=== PATIENT | female | born 1960 | race Caucasian/White ===

== ENCOUNTER 2019-09-09 09:10 | Day surgery (SDC) | payer OTHER ==
--- NOTE | 2019-07-29 13:41 | HP ---
DATE OF ADMISSION: 08/12/2019 Patient to be admitted through the [facility] on . HISTORY: This is a 59-year-old woman admitted to the [facility] [place] for laparoscopic removal of her gallbladder as management of symptomatic cholelithiasis/chronic cholecystitis. According to the patient, she has been having intermittent bouts of right upper quadrant pain radiating to her right flank with some achiness at the level of her right back over the course of at least a month 's time. Initially thought to possibly have kidney stones. However, workup by her urologist demonstrated no evidence of nephrolithiasis. She was identified, however, as having a distended gallbladder measuring up to 10 cm in size with multiple large stones noted. This was initially seen on CAT scan of July 17, 2019. A previous ultrasound evaluation from February 2012 had demonstrated large stones at that time with borderline thickening of the anterior gallbladder wall. There is no recent ultrasound evaluation, although one will be requested preoperatively. Patient does have a fatty food intolerance by history. There has been no unintentional weight loss. There is no history of jaundice. She does have a positive family history for biliary disease. Both her mother and her grandmother had gallbladder issues. PAST MEDICAL HISTORY: Significant for GERD, hypertension, hypercholesterolemia , iron deficiency anemia, arthritis, trigeminal neuralgia, underlying anxiety/ depressive disorder, and a thyroid disorder. PAST SURGICAL HISTORY: Significant for left parotidectomy almost 10 years ago. She has also had surgery for ptosis of her left eye in 2012. ALLERGIES: DIFLUCAN, QUINOLONES, BIAXIN. CURRENT MEDICATIONS: Include levothyroxine, Crestor. SOCIAL HISTORY: Negative tobacco. Patient did smoke up until 1986. Positive alcohol, once weekly. FAMILY HISTORY: Essentially nil otherwise. One sibling with schizophrenia. REVIEW OF SYSTEMS: Nil. PHYSICAL EXAMINATION: Abdomen: Soft, nontender, with no palpable findings. IMPRESSION: Chronic cholecystitis/cholelithiasis. PLAN: Laparoscopic removal of gallbladder. Possible open removal. Indications, alternatives, and possible complications reviewed. Consent obtained. Patient to be seen preoperatively by Dr. Maloney of the medical service. Please refer to his notes for those medical details. FELIPA KEITH M.D. FLORINA/[id number] cc: Arturo Maloney MD [facility]
[2019-07-31 10:25] VITALS: BMI 20.6
[~2019-09-09 09:10] MED LIST: morphine SULFATE 4 MG/ML VIAL IVPB PRN; oxyCODONE HCL 5 MG TABLET PO PRN
[2019-09-09] MEDS ORDERED: PATIENT'S OWN MEDICATION (NON-FORMULARY) (Estradiol [Estrace] 42.5 GM) VG SCH (09:15)
[2019-09-09] MEDS ORDERED: DEXAMETHASONE SOD PHOSPHATE 4 MG/1 ML VIAL ONE (09:20)
[2019-09-09] MEDS ORDERED: ONDANSETRON 4 MG/2 ML VIAL ONE ×2 (09:20→11:27)
[2019-09-09] MEDS ORDERED: ROCURONIUM BROMIDE 50 MG/5 ML SYRINGE ONE (09:20)
[2019-09-09] MEDS ORDERED: MIDAZOLAM HCL 2 MG/2 ML SINGLE DOSE VIAL ONE (09:20)
[2019-09-09] MEDS ORDERED: fentaNYL CITRATE 250 MCG/5 ML VIAL ONE (09:20)
[2019-09-09] MEDS ORDERED: ceFAZolin SODIUM 1 GM VIAL ONE (09:20)
[2019-09-09] MEDS ORDERED: PROPOFOL 20 ML ONE (09:20)
[2019-09-09] MEDS ORDERED: PATIENT'S OWN MEDICATION (NON-FORMULARY) (Cetirizine Hcl 10 MG) PO SCH (10:00)
[2019-09-09] MEDS ORDERED: PATIENT'S OWN MEDICATION (NON-FORMULARY) (Triamcinolone Acetonide [Nasacort] 10.8 ML) NS SCH (10:00)
[2019-09-09] MEDS ORDERED: LACTATED RINGERS SOLUTION 1,000 ML IV SCH (10:30)
--- NOTE | 2019-09-09 11:21 | HP ---
DATE OF ADMISSION: 09/09/2019 HISTORY: A 59-year-old woman scheduled for ambulatory surgical admission for laparoscopic removal of gallbladder as management of chronic cholecystitis and cholelithiasis (see previous dictation dated July 23, 2019). PAST MEDICAL HISTORY: The patient's past medical history has not changed. History of GERD, hypertension, hypercholesterolemia, and deficiency anemia, arthritis, trigeminal neuralgia, and anxiety-depression disorder and history of thyroid cancer. PAST SURGICAL HISTORY: Unchanged and significant for as described previously. ALLERGIES: DIFLUCAN, QUINOLONES, BIAXIN. CURRENT MEDICATIONS: Levothyroxine, Crestor. SOCIAL HISTORY: Negative tobacco. Patient did smoke up until 1986. Positive alcohol once weekly. FAMILY HISTORY: Nil other than one sibling with schizophrenia. REVIEW OF SYSTEMS: Otherwise nil. PHYSICAL EXAMINATION: Abdomen: Soft, nontender, no palpable deformity. IMPRESSION: Chronic ulcer/cholelithiasis. PLAN: Laparoscopic cholecystectomy, possible open cholecystectomy. Indications, alternatives, possible complications reviewed. Consent obtained. FELIPA KEITH M.D. [id number]
[2019-09-09] MEDS: ONDANSETRON 4 MG/2 ML VIAL IVPUSH PRN ×2 (11:30→19:04)
[2019-09-09] MEDS: D5-1/2NS+20 MEQ KCL - 20 MEQ/1,000 ML INFUS.BAG IV SCH (12:16)
[2019-09-09] MEDS: PANTOPRAZOLE SODIUM 40 MG VIAL IVPUSH SCH (12:17)
[2019-09-09] MEDS: ACETAMINOPHEN 325 MG TABLET (FP) PO PRN (22:03)
[2019-09-10] MEDS: ONDANSETRON 4 MG/2 ML VIAL IVPUSH PRN (02:26)
[2019-09-10] MEDS: ACETAMINOPHEN 325 MG TABLET (FP) PO PRN (06:41)
[2019-09-10] MEDS ORDERED: LEVOTHYROXINE NA 100 MCG TABLET (FP) PO SCH (07:00)
--- NOTE | 2019-09-10 07:37 | OP ---
DATE OF OPERATION: 09/09/2019 PREOPERATIVE DIAGNOSIS: Chronic cholecystitis/cholelithiasis. POSTOPERATIVE DIAGNOSIS: Chronic cholecystitis/cholelithiasis. PROCEDURE: Laparoscopic cholecystectomy. OPERATING SURGEON: Zev Kee MD OPERATING ROOM SPECIALIST: Stefano Cantu DO ANESTHESIA: General, Javon Lindsey MD. HISTORY: A 59-year-old woman who presents for laparoscopic removal of her gallbladder as management of chronic cholecystitis and cholelithiasis. Indications, alternatives, possible complications reviewed. Consent obtained. DESCRIPTION OF PROCEDURE: With the patient in the supine position, after general anesthesia, the abdomen was prepped and draped in sterile fashion using chlorhexidine. Small incision was made just beneath the umbilicus, through which a Veress needle was placed into the abdominal cavity. The abdominal cavity was insufflated to an adequate pressure and volume using CO2 gas. The Veress needle was removed. An 11-mm trocar port placed through the infraumbilical wound. The camera lens passed through this port and intraabdominal cavity visualized. Under direct vision, two 5-mm right anterolateral ports were placed, through which clamps were passed to maintain traction on the gallbladder and aid in the dissection. An 11-mm port was placed in the epigastrium, through which the operating instruments were passed. First directing our attention to the right upper quadrant, there was a multitude of adhesions about the gallbladder and the surrounding fibrofatty tissues. These were all taken down under direct vision, exposing the entire gallbladder and hepatoduodenal ligament. The peritoneum of the hepatoduodenal ligament was incised. The cystic duct was identified. The cystic duct-bile duct junction was noted. The cystic duct was clipped proximally and distally and divided. The adjacent artery was managed similarly. The gallbladder was then removed from the gallbladder bed, lysing its peritoneal attachment to the liver. It was ultimately disconnected and placed in a retrieval bag. The right upper quadrant was irrigated. The irrigant retrieved. Adequate hemostasis secured at the level of the liver bed. All ports were removed under direct vision. No bleeding identified. The gallbladder was ultimately delivered in its retrieval bag through the umbilical port without difficulty. After all the gas was allowed to escape from the peritoneal cavity, the infraumbilical wound was closed using interrupted 0 Vicryl sutures. All skin wounds were closed using subcuticular 4-0 Biosyn sutures. NEEDLE AND INSTRUMENT COUNT: Correct. ESTIMATED BLOOD LOSS: Minimal. SPECIMEN: Gallbladder. DRAINS: None. Patient tolerated the procedure. Procedure was terminated. James SHANKAR/[id number]
[2019-09-10 09:28] VITALS: BP 112/62; PULSE 68; TEMP 98.5
[2019-09-10] MEDS ORDERED: ENOXAPARIN NA (PORCINE) 40 MG/0.4 ML DISP.SYRIN SQ SCH (10:00)
--- NOTE | 2019-09-10 10:10 | PN ---
Progress Note, Physician Chief Complaint: s/p lap earle under general anesthesia History of Present Illness: post op day one, - Current Medication List Current Medications: Active Medications Acetaminophen (Tylenol -) 650 mg PO Q4H PRN PRN Reason: FEVER Last Admin: 09/10/19 06:41 Dose: 650 mg Enoxaparin Sodium (Lovenox -) 40 mg SQ DAILY [facility] Fentanyl (Sublimaze Injection -) 50 mcg IVPUSH [id number] PRN PRN Reason: PAIN-PACU ORDER X 4 DOSES ONLY Last Admin: 09/09/19 11:35 Dose: 50 mcg Potassium Chloride/Dextrose/Sod Cl (D5-1/2ns+20 Meq Kcl -) 20 meq in 1,000 mls @ 100 mls/hr IV ASDIR YARELI Last Admin: 09/09/19 12:16 Dose: 100 mls/hr Lactated Ringer's (Lactated Ringers Solution) 1,000 mls @ 125 mls/hr IV ASDIR [facility] Last Admin: 09/09/19 12:17 Dose: Not Given Levothyroxine Sodium (Synthroid -) 88 mcg PO Q2D@0700 [facility] Levothyroxine Sodium (Synthroid -) 100 mcg PO Q2D@0700 [facility] Last Admin: 09/10/19 06:33 Dose: 100 mcg Morphine Sulfate (Morphine Sulfate) 8 mg IVPB Q3H PRN PRN Reason: PAIN LEVEL 7 - 10 Non-Formulary Medication (Cetirizine Hcl) 10 mg PO DAILY [facility] Non-Formulary Medication (Estradiol [Estrace]) 42.5 gm VG BIW [facility] Non-Formulary Medication (Triamcinolone Acetonide [Nasacort]) 10.8 ml NS DAILY [facility] Ondansetron HCl (Zofran Injection) 4 mg IVPUSH Q6H PRN PRN Reason: NAUSEA Last Admin: 09/09/19 19:04 Dose: 4 mg Oxycodone HCl (Roxicodone -) 7.5 mg PO Q4H PRN PRN Reason: PAIN LEVEL 4 - 6 Last Admin: 09/09/19 15:52 Dose: 7.5 mg Pantoprazole Sodium (Protonix Iv) 40 mg IVPUSH DAILY [facility] Last Admin: 09/09/19 12:17 Dose: Not Given - Objective Vital Signs: Vital Signs Temperature 98.5 F 09/10/19 09:27 Pulse Rate 68 09/10/19 09:27 Respiratory Rate 14 09/10/19 09:27 Blood Pressure 112/62 09/10/19 09:27 O2 Sat by Pulse Oximetry (%) 96 09/10/19 09:00 Constitutional: Yes: Well Nourished Cardiovascular: Yes: WNL Respiratory: Yes: WNL Gastrointestinal: Yes: WNL Assessment/Plan complaining of nausea with pain medications, otherwise no adverse reaction, dept of anesthesiology will sign off care at this time
[2019-09-10] MEDS: PANTOPRAZOLE SODIUM 40 MG VIAL IVPUSH SCH (10:14)
[2019-09-10] MEDS: D5-1/2NS+20 MEQ KCL - 20 MEQ/1,000 ML INFUS.BAG IV SCH (10:15)
[2019-09-11] MEDS ORDERED: LEVOTHYROXINE NA 88 MCG TABLET (FP) PO SCH (07:00)
--- NOTE | 2019-09-11 16:11 | PATH ---
Surgical Pathology Report Patient Name: JAVAN MANRIQUE Med. Rec. #: [id number] /Age/Gender: 1960 (Age: 59) / F Account: [id number] Location: [facility] Taken: 09/09/2019 Received: 09/09/2019 Reported: 09/11/2019 Physicians: Zev Kee M.D. Specimen(s) Received GALLBLADDER Clinical History Chronic cholecystitis Final Diagnosis GALLBLADDER, CHOLECYSTECTOMY: CHRONIC CHOLECYSTITIS AND CHOLELITHIASIS. Electronically Signed Kristie Lim M.D. Gross Description Received in formalin, labeled "gallbladder," is a 7.8 x 2.5 x 2.3 cm. gallbladder with a 0.2 cm. in length portion of cystic duct attached. The outer surface is oakley and varies from smooth to shaggy. The lumen contains 3 brown, irregular choleliths ranging from 1.8-2.8 cm in greatest dimension. There is no bile present within the lumen. The mucosa is completely eroded. The wall of the gallbladder measures 0.1 cm. in thickness. [employer] sections are submitted in one cassette. /09/10/2019 saudi09/10/2019
== END 2019-09-10 10:50 | disposition home or self-care (01) ==
LOC: FASUSAT 09:10 → FM/S 09:10 → FASUSAT 09-10 10:50
PROVIDERS: ATTEND Surgery
PROC: 0FT44ZZ Resection of Gallbladder, Percutaneous Endoscopic Approach (ICD-10-PCS; principal; 2019-09-09 10:07)
DX: K80.44 Calculus of bile duct with chronic cholecystitis without obstruction (principal); I10 Essential (primary) hypertension; E78.00 Pure hypercholesterolemia, unspecified; K21.9 Gastro-esophageal reflux disease without esophagitis
CPT/HCPCS: 88304-TC; 94760

== ENCOUNTER 2019-11-13 11:32 | Emergency (ER) | payer OTHER ==
[2019-11-13 11:45] VITALS: BP 155/97; PULSE 88; TEMP 98.2; BMI 20.6
--- NOTE | 2019-11-13 12:19 | PDOC ---
History of Present Illness - General Chief Complaint: Pain Stated Complaint: RIGHT WAIST, RIGHT SIDE PAIN Time Seen by Provider: 11/13/19 11:53 - History of Present Illness Initial Comments: 11/13/19 15:07 Chief complaint: Flank pain HPI: Right flank pain beginning yesterday, continuous, but with exacerbations. No radiation to the abdomen or groin. No dysuria, frequency, urgency, hesitancy , or hematuria. No vaginal bleeding or discharge. History of renal colic in the past year, with a stone that passed spontaneously Review of systems: No fever/chills, chest pain, shortness of breath, abdominal pain, nausea, vomiting, diarrhea, visual or focal neurologic symptoms, unsteadiness of gait. Remainder of systems reviewed and negative Past medical history: Cholecystectomy several months ago for dilated gallbladder with stones. Renal colic. Otherwise noncontributory Social/family history: No tobacco alcohol or drugs. It is of note that she recently began doing yoga again and during a class was "twisted" vigorously by the instructor. This was before onset of symptoms. Physical exam: Alert and oriented well-developed well-nourished mild distress secondary to flank pain cheerful and cooperative Afebrile, vital signs normal No pallor or icterus ENT clear Neck supple without bruit mass or nodes Chest clear CV regular without murmur rub or gallop pulses full and symmetric no JVD or edema no bruits Abdomen nondistended. Bowel sounds normal. Soft without mass tenderness organomegaly. Zee's is negative No CVAT Extremities no CCE Skin clear, no rash, adequate turgor and wet mucous membranes Thoracic spine and low back without without point tenderness, spasm, or deformity visible or palpable. Impression: Most likely musculoskeletal pain. However, urinalysis has trace blood. Rule out renal colic Plan: CT urogram is negative for kidney or other urinary tract stones, or other GI disease . This makes a musculoskeletal etiology most likely. Fluids and Toradol. Symptomatic treatment and follow-up primary physician, return to ER if symptoms worsen or additional symptoms such as fever/chills, dysuria, or abdominal pain develop. fully ambulatory and with relief of pain at discharge to follow-up as directed Past History - Past Medical History Allergies/Adverse Reactions: Allergies Allergy/AdvReac Type Severity Reaction Status Date / Time clarithromycin [From Biaxin] Allergy Severe Nausea Verified 11/13/19 11:40 fluconazole [From Diflucan] Allergy Severe Rash Verified 11/13/19 11:40 Quinolones Allergy Severe TENDON PAIN Verified 11/13/19 11:40 nut - unspecified Allergy Verified 11/13/19 11:40 strawberry Allergy Verified 11/13/19 11:40 iron infusions Allergy Severe hypotension, Uncoded 11/13/19 11:40 joint swelling Home Medications: Ambulatory Orders Rosuvastatin Calcium [Crestor] 5 mg PO ASDIR 07/31/19 Cyclobenzaprine HCl [Flexeril -] 10 mg PO TID #15 tablet 11/13/19 Diclofenac Sodium 50 mg PO BID PRN #15 tablet. 11/13/19 Levothyroxine Sodium [Synthroid] 88 mcg PO DAILY 11/13/19 Anemia: Yes (IRON DEFICIENCY, status post iron infusion last week) Asthma: No Cancer: No Cardiac Disorders: No CVA: No COPD: No CHF: No Dementia: No Diabetes: No GI Disorders: Yes (GERD) Disorders: No HTN: Yes Hypercholesterolemia: Yes Liver Disease: No Seizures: No Thyroid Disease: Yes (GRAVES DISEASE S/P RADIOAVTIVE IODINE [place]) - Surgical History Abdominal Surgery: No Appendectomy: No Cardiac Surgery: No Cholecystectomy: No Lung Surgery: No Neurologic Surgery: No Orthopedic Surgery: No - Psycho Social/Smoking Cessation Hx Smoking Status: No Smoking History: Former smoker Have you smoked in the past 12 months: No Number of Cigarettes Smoked Daily: 0 If you are a former smoker, when did you quit?: 1986 Information on smoking cessation initiated: No Hx Alcohol Use: ("social") Drug/Substance Use Hx: No Substance Use Type: None *Physical Exam - Vital Signs Last Vital Signs Temp Pulse Resp BP Pulse Ox 98.2 F 88 16 155/97 100 11/13/19 11:32 11/13/19 11:32 11/13/19 11:32 11/13/19 11:32 11/13/19 11:32 ED Treatment Course - LABORATORY CBC & Chemistry Diagram: 11/13/19 12:55 11/13/19 12:55 Discharge - Discharge Information Problems reviewed: Yes Clinical Impression/Diagnosis: Musculoskeletal pain Condition: Stable - Additional Discharge Information Prescriptions: Cyclobenzaprine HCl [Flexeril -] 10 mg PO TID #15 tablet Diclofenac Sodium 50 mg PO BID PRN #15 tablet.dr AQUINO Reason: Pain - Follow up/Referral Referrals: Arturo Maloney MD [Primary Care Provider] - 1 week - Patient Discharge Instructions Patient Printed Discharge Instructions: DI for Musculoskeletal Pain Additional Instructions: Rest, heat/ice, anti-inflammatory medicine and muscle relaxant as prescribed for 2 to 3 days. Massage would be helpful Follow-up with Dr. Maloney - Post Discharge Activity
[2019-11-13] MEDS ORDERED: SODIUM CHLORIDE 1,000 ML IV STA (12:45)
[2019-11-13] MEDS ORDERED: KETOROLAC TROMETHAMINE 30 MG/1 ML VIAL IVPUSH ONE (12:46)
[2019-11-13] MEDS ORDERED: KETOROLAC TROMETHAMINE 30 MG/1 ML VIAL ONE (12:57)
[2019-11-13 13:25] LABS: BASO % 0.4 % (0-2.0); EOS % 1.9 % (0-4.5); HEMATOCRIT 40.5 % (32.4-45.2); HEMOGLOBIN 13.4 GM/dl (10.7-15.3); LYMPH % 19.4 % (8-40); MCH 28.4 pg (25.7-33.7); MCHC 33.1 g/dl (32.0-36.0); MEAN CELL VOLUME 85.9 fl (80-96); MEAN PLT VOLUME 7.3 fl (7.5-11.1); MONO % 6.7 % (3.8-10.2); NEUT % 71.6 % (42.8-82.8); PLATELET COUNT 230 K/MM3 (134-434); RBC 4.72 M/mm3 (3.60-5.2); WHITE BLOOD COUNT 5.3 K/mm3 (4.0-10.8)
[2019-11-13 13:33] LABS: ALBUMIN 3.9 g/dl (3.4-5.0); BILIRUBIN,TOTAL 1.4 mg/dl (0.2-1); CALCIUM 8.8 mg/dl (8.5-10); CREATININE 0.6 mg/dl (0.55-1.3); POTASSIUM 3.7 mmol/L (3.5-5.1); TOT PROT 6.3 g/dl (6.4-8.2)
[2019-11-13 13:56] LABS: EPITHELIAL CELLS FEW /hpf
== END 2019-11-13 15:15 | disposition home or self-care (01) ==
LOC: FER 11:32
PROC: 3E0333Z Introduction of Anti-inflammatory into Peripheral Vein, Percutaneous Approach (ICD-10-PCS; principal; 2019-11-13)
PROC: 3E0337Z Introduction of Electrolytic and Water Balance Substance into Peripheral Vein, Percutaneous Approach (ICD-10-PCS; 2019-11-13)
DX: M79.10 Myalgia, unspecified site (principal); I10 Essential (primary) hypertension; E78.00 Pure hypercholesterolemia, unspecified; K21.9 Gastro-esophageal reflux disease without esophagitis; Z88.1 Allergy status to other antibiotic agents; Z88.8 Allergy status to other drugs, medicaments and biological substances; Z91.048 Other nonmedicinal substance allergy status; Z91.018 Allergy to other foods; Z87.891 Personal history of nicotine dependence; Z86.39 Personal history of other endocrine, nutritional and metabolic disease
CPT/HCPCS: 36415; 74176-TC; 80053; 81003; 81015; 85025; 99284-25; J7030

== ENCOUNTER 2021-03-27 23:38 | Emergency (ER) | payer OTHER ==
[2021-03-27 23:54] VITALS: BP 139/93; PULSE 70; TEMP 98; BMI 20.6
[2021-03-28] MEDS ORDERED: CEPHALEXIN MONOHYDRATE 500 MG CAPSULE (UD) PO ONE (00:06)
[2021-03-28] MEDS ORDERED: PHENAZOPYRIDINE HCL 100 MG TABLET (FP) PO ONE (00:11)
[2021-03-28] MEDS ORDERED: CEPHALEXIN MONOHYDRATE 500 MG CAPSULE (UD) ONE (00:19)
[2021-03-28] MEDS ORDERED: PHENAZOPYRIDINE HCL 100 MG TABLET (FP) ONE (00:19)
== END 2021-03-28 00:34 | disposition home or self-care (01) ==
LOC: FER 23:38
DX: N39.0 Urinary tract infection, site not specified (principal)
CPT/HCPCS: 81003; 81015; 87086; 87186; 99283-25

== ENCOUNTER 2021-10-15 14:05 | Emergency (ER) | payer OTHER ==
[2021-10-15 14:21] VITALS: BP 155/75; PULSE 66; TEMP 98.5; BMI 19.2
== END 2021-10-15 15:09 | disposition home or self-care (01) ==
LOC: FER 14:05
DX: R05.9 Cough, unspecified (principal); R09.82 Postnasal drip
CPT/HCPCS: 71046-TC-FY; 87804; 99284-25; C9803; U0003; U0005

== ENCOUNTER 2022-08-05 20:46 | Emergency (ER) | payer OTHER ==
[2022-08-05 21:05] VITALS: BP 142/86; PULSE 93; RESP 18; TEMP 97.8; BMI 22.3
[2022-08-05] MEDS ORDERED: CEPHALEXIN MONOHYDRATE 500 MG CAPSULE (UD) PO ONE (21:25)
[2022-08-05] MEDS ORDERED: CEPHALEXIN MONOHYDRATE 500 MG CAPSULE (UD) ONE (21:28)
[2022-08-05] MEDS ORDERED: PHENAZOPYRIDINE HCL 100 MG TABLET (FP) ONE (21:29)
[2022-08-05] MEDS ORDERED: PHENAZOPYRIDINE HCL 100 MG TABLET (FP) PO ONE (21:29)
[2022-08-05 21:36] LABS: EPITHELIAL CELLS MODERATE /hpf
== END 2022-08-05 21:35 | disposition home or self-care (01) ==
LOC: FER 20:46
DX: N30.90 Cystitis, unspecified without hematuria (principal)
CPT/HCPCS: 81003; 81015; 87086; 87186; 99283-25

== ENCOUNTER 2023-06-03 08:22 | Day surgery (SDC) | payer OTHER ==
[2023-05-29 17:26] VITALS: BMI 21.5
[2023-06-03 10:56] VITALS: RESP 16; TEMP 97.6
[2023-06-03 10:59] VITALS: BP 117/89; PULSE 66
== END 2023-06-03 11:15 | disposition home or self-care (01) ==
LOC: FASU-ENDO 08:22
PROVIDERS: ATTEND Internal Medicine Gastroenterology
PROC: 0DJD8ZZ Inspection of Lower Intestinal Tract, Via Natural or Artificial Opening Endoscopic (ICD-10-PCS; principal; 2023-06-03 10:09)
DX: Z12.11 Encounter for screening for malignant neoplasm of colon (principal)